=== PATIENT | female | born 1990 | race Caucasian/White ===

== ENCOUNTER 2021-09-19 13:47 | Outpatient (CLI) | payer OTHER, SELFPAY ==
--- NOTE | ~2021-09-19 | XR_ITS ---
EXAMINATION: XR knee LT 3V EXAM DATE: 09/19/2021 14:12 INDICATION: M25.562 - Pain in left knee;knee pops when bending;no injury. TECHNIQUE: Three projections of the left knee. There is no prior study for comparison. FINDINGS: No evidence osteochondral defect or joint body in the left knee joint. There are no acute fractures or dislocations identified. There is no subcutaneous gas. The soft tissue is unremarkabl e. There are no radiopaque foreign bodies. No joint effusion. IMPRESSION: 1. Unremarkable XR knee LT 3V exam. Reviewed, dictated and finalized at location A. [employer]
[2021-09-21 16:35] LABS: DHEA-Sulfate 440 mcg/dL (18-391)
[2021-09-22 06:59] LABS: FSH 12.8 mIU/mL (***); Progesterone 0.5 ng/mL (***)
[2021-09-25 09:13] LABS: Testosterone Total 36 ng/dL (2-45)
[2021-09-26 18:06] LABS: Estrogen 119.6 pg/mL
== END 2021-09-19 13:48 | disposition home or self-care (01) ==
LOC: ANHIMG 13:50
PROVIDERS: PCP Emergency Medicine; Visit Provider Emergency Medicine
DX: R63.5 Abnormal weight gain (principal); R53.83 Other fatigue; M25.562 Pain in left knee
CPT/HCPCS: 36415; 73562; 82627; 82672; 83001; 84144; 84403; 84443

== ENCOUNTER 2021-10-15 16:31 | Outpatient (CLI) | payer OTHER, SELFPAY ==
--- NOTE | ~2021-10-15 | MR_ITS ---
EXAMINATION: MR knee LT wo con DATE: 10/15/2021 17:18 INDICATION: Left knee pain with popping and discomfort. TECHNIQUE: Magnetic resonance imaging (MRI) of the left knee was performed without intravenous contra st. Sequences included coronal PD-weighted FSE, coronal PD-weighted FS FSE, sagittal T2-weighted FSE , sagittal PD-weighted FS FSE and axial PD weighted fat saturated FSE. COMPARISON: None. FINDINGS: Medial compartment: Medial meniscus is normal. Articular cartilage is normal. 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 Articular cartilage is normal. Patellofemoral compartment: Articular cartilage is normal. Ligaments and tendons: Anterior and posterior cruciate ligaments are normal. The medial collateral ligament and fibular remi ateral ligament complex are normal. The extensor mechanism is normal. The visualized medial and later al hamstring tendons as well as the iliotibial band are normal. Fluid: Physiologic amount of fluid in the joint space. No loose osteochondral bodies identified. Osseous/other: Normal marrow signal. No fracture or pathologic marrow replacing process. IMPRESSION: 1. 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 Otherwise normal left kn ee MRI. Reviewed, dictated and finalized at location B. IMPRESSION: 1. 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 Ot herwise normal left knee MRI.
== END 2021-10-15 16:32 | disposition home or self-care (01) ==
LOC: ANHIMG 16:32
PROVIDERS: PCP Emergency Medicine; Visit Provider Emergency Medicine
DX: S83.106A Unspecified dislocation of unspecified knee, initial encounter (principal); M25.562 Pain in left knee
CPT/HCPCS: 73721